=== PATIENT | female | born 1975 | race Caucasian/White ===

== ENCOUNTER 2021-04-06 14:19 | Emergency (ER) | payer MEDICAID, SELFPAY ==
--- NOTE | ~2021-04-06 | XR_ITS ---
EXAMINATION: XR foot RT min 3V DATE: 04/06/2021 16:27 INDICATION: Plantar foot pain, stepped on nail TECHNIQUE: Dorsoplantar, lateral, and 2 oblique views of the right foot were obtained. COMPARISON: None. FINDINGS: There is no fracture, dislocation, or subluxation. 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 There appears to be a puncture wound at the plantar aspect of the foot. No underlying osseous abnormality is identified. There is a plantar calcaneal enthesophyte. No radiop aque foreign body is evident. IMPRESSION: 1. Apparent plantar puncture wound of the foot without associated osseous abnormality. Reviewed, dictated and finalized at location A. IMPRESSION: 1. Apparent plantar puncture wound of the foot without associated osseous abnor mality.
[2021-04-06 15:00] VITALS: BP 157/103; PULSE 111; RESP 20; TEMP 36.6; O2SAT 98
--- NOTE | 2021-04-06 16:19 | ED.GENADULT ---
HPI - General Adult General Chief complaint: Extremity Injury, Lower Stated complaint: Stepped on Nail Time Seen by Provider: 04/06/21 16:00 Source: patient Mode of arrival: ambulatory Limitations: no limitations History of Present Illness HPI narrative: 46 y/o female. PMHx HTN, GERD. Presents to [facility] today with acute complaints of RT foot pain after stepping on a nail. Pt reports to have accidentally stepped on a 'eve nail' immediately [employer]. The nail had penetrated her footwear, and punctured dorsal RT Foot. No additional injury has been identified. No loss of lower extremity sensation or movement. She is non-diabetic. Pt is without additional acute c/o illness upon PE. Related Data Home Medications Medication Instructions Recorded Confirmed lisinopril 20 mg PO DAILY 04/06/21 04/06/21 omeprazole 20 mg PO DAILY 04/06/21 04/06/21 Allergies Allergy/AdvReac Type Severity Reaction Status Date / Time morphine Allergy Rash Verified 04/06/21 15:22 Review of Systems Review of Systems: CONSTITUTIONAL: Denies fever, chills, sweats. EYES: Denies visual changes, redness, discharge. ENT: Denies rhinorrhea, congestion, sore throat, otalgia. CARDIOVASCULAR: Denies chest pain, palpitations, edema. RESPIRATORY: Denies dyspnea, wheezing, cough GASTROINTESTINAL: Denies abdominal pain, nausea, vomiting, diarrhea. GENITOURINARY: Denies dysuria, hematuria, abnormal discharge SKIN: Denies rash or itching. MUSCULOSKELETAL: Denies acute back pain, joint pain, or myalgia. RT foot injury. NEUROLOGIC: Denies numbness, or focal weakness. PSYCHIATRIC: Denies anxiety or depression. All systems reviewed & are unremarkable except as noted in HPI and below Exam Narrative: GENERAL: This is a well-nourished, well-developed adult, in no apparent distress. HEAD: normocephalic, atraumatic. EYES: PERRL. Sclera clear/white. EARS: External ears normal. NOSE: External nose normal. . THROAT: Mucous membranes moist. NECK: Neck supple. CARDIOVASCULAR: Regular rate and rhythm. Pulses intact RLE. RESPIRATORY: Clear to auscultation. Breath sounds equal bilaterally. No wheezes, rales, or rhonchi. GASTROINTESTINAL: Abdomen soft, non-tender, nondistended. SKIN: warm. With small puncture wound located to RT dorsal upper aspect foot. No active bleeding or residual FB. NEURO: Alert, active, and age appropriate. No focal neurologic deficits. Good sensation and discrimination RLE. EXTREMITIES: Mild point bony tenderness dorsal foot, surrounding puncture wound. Medical Decision Making MDM Narrative Medical decision making narrative: -Plain film radiology imaging reveals no acute bony disruption. -No neurovascular deficits. -NSAID PRN. -Tetanus updated in [facility] today. -Will start Augmentin PO BID X 7 days for skin and soft tissue coverage. -PCP F/U 1WK -ER W/Emergent health status changes. Pt agrees. Differential Diagnosis Differential Diagnosis: Differential Diagnosis: Consideration of the following conditions may be warranted for the presenting problem, they are not final diagnoses: Puncture wound, Cellulitis, RT foot foreign body, or other. Medical Records Medical records reviewed: Yes I reviewed the external patient's medical records. Imaging Data Attestation: I personally reviewed and interpreted this imaging study as follows: Radiologist's impression: No acute osseous abnormality. Critical Care Time Critical Care Time Critical Care Time: No Discharge Plan Discharge Clinical Impression: Puncture wound Patient Disposition: Home, Self-Care Condition: Stable Instructions: Puncture Wound (DC) Prescriptions: New amoxicillin-pot clavulanate [Augmentin] 500-125 mg tablet 1 tablet PO Q12H 7 Days Qty: 14 RF: 0 No Action lisinopril 20 mg Tablet 20 mg PO DAILY RF: 0 omeprazole 20 mg Capsule,Delayed Release(Dr/Ec) 20 mg PO DAILY RF: 0 Follow-up/Referrals: PHYSIC
[2021-04-06] MEDS: IBUPROFEN 600 MG TABLET PO (16:31)
[2021-04-06] MEDS: TETANUS,DIPHTHERIA,AC PERTUSSIS ADULT (0.5 ML) BOOSTRIX IM (16:35)
== END 2021-04-06 16:30 | disposition home or self-care (01) ==
PROVIDERS: Emergency Provider Nurse Practitioner Adult Health
DX: S91.331A Puncture wound without foreign body, right foot, initial encounter (principal); W45.0XXA Nail entering through skin, initial encounter; Z23 Encounter for immunization; I10 Essential (primary) hypertension; K21.9 Gastro-esophageal reflux disease without esophagitis
CPT/HCPCS: 73630; 90471; 90715; 99203; A9270; G0463